=== PATIENT | female | born 1980 | race Caucasian/White ===

== ENCOUNTER 2022-09-21 14:45 | Outpatient (CLI) | payer OTHER | END 2022-09-21 14:46 | disposition home or self-care (01) | LOC: BICMAMMO 14:45 | PROVIDERS: ATTEND Nurse Practitioner Family | DX: R92.8 Other abnormal and inconclusive findings on diagnostic imaging of breast (principal) | CPT/HCPCS: 77066; G0279 ==

== ENCOUNTER 2022-11-20 07:54 | Day surgery (SDC) | payer BC ==
[2022-11-16 16:31] VITALS: BMI 32.9
[2022-11-20] MEDS ORDERED: Ketorolac Tromethamine 30 MG/ML VIAL ONE ×2 (09:37→11:21)
[2022-11-20] MEDS ORDERED: Acetaminophen 500 MG TAB ONE (09:37)
[2022-11-20] MEDS ORDERED: Lidocaine 1% (PF) 30 ML VIAL ONE (10:58)
[2022-11-20] MEDS ORDERED: Isosulfan Blue 50 MG/5 ML VIAL ONE (10:58)
[2022-11-20] MEDS ORDERED: Bupivacaine/Epinephrine 0.25% 30 ML VIAL ONE ×2 (10:58→12:24)
[2022-11-20] MEDS ORDERED: Fentanyl 250 MCG/5 ML VIAL ONE (11:02)
[2022-11-20] MEDS ORDERED: CEFAZOLIN 2 GM VIAL ONE (11:10)
[2022-11-20] MEDS ORDERED: Sodium Chloride 0.9% 100 ML ONE (11:10)
[2022-11-20] MEDS ORDERED: Lidocaine 1% PF 5 ML VIAL ONE (11:21)
[2022-11-20] MEDS ORDERED: PROPOFOL 200 MG/20 ML VIAL ONE (11:21)
[2022-11-20] MEDS ORDERED: Ondansetron PF 4 MG/2 ML Vial ONE (11:21)
[2022-11-20] MEDS ORDERED: Dexamethasone 20 MG/5 ML VIAL ONE (11:21)
[2022-11-20] MEDS ORDERED: Fentanyl 100 MCG/2 ML VIAL ONE (13:53)
== END 2022-11-20 15:55 | disposition home or self-care (01) ==
LOC: NM 07:54 → SDC 15:55
PROVIDERS: ATTEND Specialist
PROC: 07B50ZX Excision of Right Axillary Lymphatic, Open Approach, Diagnostic (ICD-10-PCS; principal; 2022-11-20)
PROC: 0HBT0ZZ Excision of Right Breast, Open Approach (ICD-10-PCS; principal; 2022-11-20)
DX: C50.411 Malignant neoplasm of upper-outer quadrant of right female breast (principal); C77.3 Secondary and unspecified malignant neoplasm of axilla and upper limb lymph nodes; Z17.0 Estrogen receptor positive status [ER+]
CPT/HCPCS: 76098; 78195; 88307; A9541; C1713; C1776; J1100; J1885; J2001; J2405; J2704; J3010; J3490; Q9968

== ENCOUNTER 2022-12-06 10:59 | Day surgery (SDC) | payer BC ==
[2022-12-05 15:13] VITALS: BMI 32.1
[2022-12-06] MEDS ORDERED: Acetaminophen 500 MG TAB ONE (11:33)
[2022-12-06] MEDS ORDERED: Ketorolac Tromethamine 30 MG/ML VIAL ONE (11:33)
[2022-12-06] MEDS ORDERED: Bupivacaine/Epinephrine 0.25% 30 ML VIAL ONE (12:58)
[2022-12-06] MEDS ORDERED: Sodium Chloride 0.9% 100 ML ONE (13:07)
[2022-12-06] MEDS ORDERED: CEFAZOLIN 2 GM VIAL ONE (13:07)
[2022-12-06] MEDS ORDERED: fentaNYL PF 100 MCG/2 ML SYRINGE ONE (13:13)
[2022-12-06] MEDS ORDERED: PROPOFOL 200 MG/20 ML VIAL ONE (13:29)
[2022-12-06] MEDS ORDERED: Lidocaine 1% PF 5 ML VIAL ONE (13:29)
[2022-12-06] MEDS ORDERED: Dexamethasone 20 MG/5 ML VIAL ONE (13:29)
[2022-12-06] MEDS ORDERED: Ondansetron PF 4 MG/2 ML Vial ONE (13:29)
[2022-12-06] MEDS ORDERED: Fentanyl 100 MCG/2 ML VIAL ONE ×2 (15:39→15:40)
== END 2022-12-06 16:33 | disposition home or self-care (01) ==
LOC: SDC 10:59
PROVIDERS: ATTEND Specialist
PROC: 0HBT0ZZ Excision of Right Breast, Open Approach (ICD-10-PCS; principal; 2022-12-06)
DX: C50.411 Malignant neoplasm of upper-outer quadrant of right female breast (principal); C77.3 Secondary and unspecified malignant neoplasm of axilla and upper limb lymph nodes
CPT/HCPCS: 88307; 88342; C1776; C1889; J1100; J1885; J2405; J2704; J3010; J3490

== ENCOUNTER 2022-12-21 11:37 | Outpatient (CLI) | payer BC ==
[2022-12-21 12:45] LABS: #Basophils 0.1 10x3/uL (0.0-0.2); #Eosinphils 0.2 10x3/uL (0.0-0.5); #Monocytes 0.8 10x3/uL (0.0-1.1); #Neutrophils 4.7 10x3/uL (1.5-8.4); %Basophils 1.3 % (0.0-2.0); %Eosinophils 2.6 % (0.0-6.0); %Lymphocytes 31.6 % (18.0-47.0); %Neutrophils 55.3 % (40.0-75.0); Hemoglobin 9.2 g/dL (12.0-15.5); Mean Corpuscular HGB CONC 29.4 g/dL (32.0-36.0); Mean Corpuscular Volume 71.3 fl (81.6-98.3); Mean Platelet Volume 9.4 fl (7.4-10.4); Platelet Count 437 10x3/uL (150-450); RBC Distribution Width 17.5 % (11.5-14.5); Red Blood Cell (RBC) Count 4.39 10x6/uL (3.90-5.03); White Blood Cell (WBC) Count 8.5 10x3/uL (3.5-10.5)
[2022-12-21 13:05] LABS: Anion Gap 12 mmol/L (10-20); BUN (Urea Nitrogen) 11 mg/dL (7.0-18.7); Calc. Creatinine Clearance 0 mL/min (70-130); Calcium 9.5 mg/dL (7.8-10.44); Carbon Dioxide 23 mmol/L (22-29); Chloride 105 mmol/L (98-107); Estimated GFR 114; Glucose 112 mg/dL (70-105); Potassium 4.1 mmol/L (3.5-5.1); Sodium 136 mmol/L (136-145)
[2022-12-21 13:08] LABS: Hypochromia SLIGHT = 6-15 cells (100X) (0-5/hpf); Microcytosis SLIGHT = 6-15 cells (100X) (0-5/hpf); Ovalocytes SLIGHT = 2-5 cells (100X) (0-1/hpf); Platelet Morphology Comment Appears Adequate
== END 2022-12-21 11:38 | disposition home or self-care (01) ==
LOC: LABBT 11:37
PROVIDERS: ATTEND Specialist
DX: Z01.812 Encounter for preprocedural laboratory examination (principal); C50.911 Malignant neoplasm of unspecified site of right female breast
CPT/HCPCS: 80048; 85025

== ENCOUNTER 2022-12-25 07:02 | Inpatient (IN) | payer BC ==
[2022-12-21 11:10] VITALS: BMI 31.6
[2022-12-25] MEDS ORDERED: Acetaminophen 500 MG TAB ONE (07:59)
[2022-12-25] MEDS ORDERED: Ketorolac Tromethamine 30 MG/ML VIAL ONE ×3 (07:59→14:50)
[2022-12-25] MEDS ORDERED: Midazolam HCl 2 mg/2 ml Vial ONE (08:48)
[2022-12-25] MEDS ORDERED: Fentanyl 100 MCG/2 ML VIAL ONE ×4 (08:48→16:54)
[2022-12-25] MEDS ORDERED: Sodium Chloride 0.9% 30 ML ONE (08:51)
[2022-12-25 09:08] LABS: SARS-CoV-2 NAA Rapid Test Not Detected (NotDetected)
[2022-12-25] MEDS ORDERED: Dexmedetomidine 200 MCG/2 ML VIAL ONE (09:45)
[2022-12-25] MEDS ORDERED: SUGAMMADEX SODIUM 200 MG/2 ML VIAL ONE (09:45)
[2022-12-25] MEDS ORDERED: fentaNYL PF 100 MCG/2 ML SYRINGE ONE (09:45)
[2022-12-25] MEDS ORDERED: Sodium Chloride 0.9% 100 ML ONE (10:00)
[2022-12-25] MEDS ORDERED: CEFAZOLIN 2 GM VIAL ONE (10:00)
[2022-12-25] MEDS ORDERED: Ondansetron PF 4 MG/2 ML Vial ONE (10:20)
[2022-12-25] MEDS ORDERED: Rocuronium Bromide 10 MG/ML (10ML VIAL) ONE (10:20)
[2022-12-25] MEDS ORDERED: PHENYLEPHRINE-NS 100 MCG/ML 10 ML SYRINGE ONE (10:20)
[2022-12-25] MEDS ORDERED: Ropivacaine 0.5% HCl/PF (150 MG/30 ML VIAL) ONE (10:20)
[2022-12-25] MEDS ORDERED: Dexamethasone 20 MG/5 ML VIAL ONE (10:20)
[2022-12-25] MEDS ORDERED: Lidocaine 1% PF 5 ML VIAL ONE (10:20)
[2022-12-25] MEDS ORDERED: PROPOFOL 200 MG/20 ML VIAL ONE (10:20)
[2022-12-25] MEDS ORDERED: Ondansetron HCl/PF 4 MG/2 ML Vial IVP PRN (13:53)
[2022-12-25] MEDS ORDERED: Promethazine HCl 25 MG/ML VIAL IM PRN ×2 (13:53→16:08)
[2022-12-25] MEDS ORDERED: HYDROmorphone 2 MG/ML VIAL SLOW IVP PRN (13:53)
[2022-12-25] MEDS ORDERED: Promethazine HCl 25 MG/ML VIAL ONE (15:24)
[2022-12-25] MEDS ORDERED: Ipratropium/Albuterol 3 ML NEB NEB PRN (16:08)
[2022-12-25] MEDS ORDERED: Ondansetron PF 4 MG/2 ML Vial IVP PRN (16:08)
[2022-12-25] MEDS ORDERED: HYDROcodone/Acetaminophen 7.5/325 mg Tablet PO PRN ×2 (16:08)
[2022-12-25] MEDS ORDERED: Morphine 2 MG/ML VIAL SLOW IVP PRN (16:08)
[2022-12-25] MEDS ORDERED: Dextrose 50% Abboject 50 ML SYRINGE SLOW IVP PRN (16:08)
[2022-12-25] MEDS ORDERED: Dextrose 5% in Water 1,000 ML IV PRN (16:08)
[2022-12-25] MEDS ORDERED: hydrALAZINE 20 MG/ML VIAL SLOW IVP PRN (16:08)
[2022-12-25 16:12] LABS: #Lymphocytes 1.6 thou/uL (1.20-3.40); #Monocytes 0.1 thou/uL (0.11-0.59); #Neutrophils 11.6 thou/uL (1.40-6.50); %Basophils 0.3 % (0.0-1.0); %Eosinophils 0.2 % (0.0-10.0); %Lymphocytes 11.9 % (21.0-51.0); %Monocytes 0.9 % (0.0-10.0); %Neutrophils 86.7 % (42.0-75.0); Hemoglobin 8.6 g/dL (12.0-16.0); Mean Corpuscular HGB CONC 31.2 g/dL (32.0-36.0); Mean Corpuscular Hemoglobin 21.9 pg (27.0-31.0); Mean Corpuscular Volume 70.2 fl (78.0-98.0); Mean Platelet Volume 8.8 fL (7.4-10.4); Platelet Count 350 10x3/uL (130-400); RBC Distribution Width 16.3 % (11.5-14.5); Red Blood Cell (RBC) Count 3.91 mill/uL (4.20-5.40); White Blood Cell (WBC) Count 13.4 10x3/uL (4.8-10.8)
[2022-12-25] MEDS: Ferrous Sulfate 325 MG TAB PO SCH (18:10)
[2022-12-25] MEDS: D5 1/2 NS w/20 mEq KCL 1,000 ML IV SCH (18:10)
[2022-12-25] MEDS: Ketorolac Tromethamine 30 MG/ML VIAL IVP SCH ×2 (18:11→23:59)
[2022-12-25] MEDS: Morphine 4 MG/ML VIAL SLOW IVP PRN (19:31)
[2022-12-25] MEDS: Famotidine 20 MG TAB PO SCH (22:09)
[2022-12-26] MEDS: Morphine 4 MG/ML VIAL SLOW IVP PRN ×5 (02:34→09:46)
[2022-12-26] MEDS: Ketorolac Tromethamine 30 MG/ML VIAL IVP SCH ×4 (05:22→23:10)
[2022-12-26 05:54] LABS: #Lymphocytes 2.5 thou/uL (1.20-3.40); #Monocytes 1.5 thou/uL (0.11-0.59); #Neutrophils 8.9 thou/uL (1.40-6.50); %Basophils 0.4 % (0.0-1.0); %Eosinophils 0.1 % (0.0-10.0); %Lymphocytes 19.5 % (21.0-51.0); %Monocytes 11.7 % (0.0-10.0); %Neutrophils 68.3 % (42.0-75.0); Hemoglobin 7.3 g/dL (12.0-16.0); Mean Corpuscular HGB CONC 32.1 g/dL (32.0-36.0); Mean Corpuscular Hemoglobin 22.5 pg (27.0-31.0); Mean Corpuscular Volume 70.1 fl (78.0-98.0); Mean Platelet Volume 8.6 fL (7.4-10.4); Platelet Count 322 10x3/uL (130-400); RBC Distribution Width 16.6 % (11.5-14.5); Red Blood Cell (RBC) Count 3.26 mill/uL (4.20-5.40)
[2022-12-26 06:10] LABS: Anion Gap 12 mmol/L (10-20); BUN (Urea Nitrogen) 6 mg/dL (7.0-18.7); Calc. Creatinine Clearance 162 mL/min (70-130); Carbon Dioxide 20 mmol/L (22-29); Chloride 107 mmol/L (98-107); Estimated GFR 116; Glucose 128 mg/dL (70-105); Sodium 135 mmol/L (136-145)
[2022-12-26] MEDS: D5 1/2 NS w/20 mEq KCL 1,000 ML IV SCH (09:45)
[2022-12-26] MEDS: Famotidine 20 MG TAB PO SCH ×2 (09:46→21:48)
[2022-12-26] MEDS: Ferrous Sulfate 325 MG TAB PO SCH ×2 (09:46→17:57)
[2022-12-26] MEDS ORDERED: HYDROcodone/Acetaminophen 7.5/325 mg Tablet PO PRN (13:43)
[2022-12-26] MEDS ORDERED: D5 1/2 NS w/20 mEq KCL 1,000 ML IV SCH (13:43)
[2022-12-26] MEDS: HYDROcodone/Acetaminophen 7.5/325 mg Tablet PO PRN ×3 (14:02→21:48)
[2022-12-27] MEDS: HYDROcodone/Acetaminophen 7.5/325 mg Tablet PO PRN ×3 (01:54→11:13)
[2022-12-27] MEDS: Ketorolac Tromethamine 30 MG/ML VIAL IVP SCH (05:30)
[2022-12-27 08:06] VITALS: BP 154/92; TEMP 98
[2022-12-27] MEDS: Famotidine 20 MG TAB PO SCH (08:24)
[2022-12-27] MEDS: Ferrous Sulfate 325 MG TAB PO SCH (08:24)
[2022-12-28] MEDS ORDERED: FLU VACC QS2022-23(6MOS UP)/PF 60 MCG/0.5 ML SYRINGE IM ONE (09:00)
== END 2022-12-27 12:30 | disposition home or self-care (01) | DRG 582 ==
LOC: SDC 07:02 → OBSVTOIN 17:38 → MSONC 17:38
PROVIDERS: ADMIT Specialist; ATTEND Specialist
PROC: 0HBV0ZZ Excision of Bilateral Breast, Open Approach (ICD-10-PCS; principal; 2022-12-25)
PROC: 0KXF0Z5 Transfer Right Trunk Muscle, Latissimus Dorsi Myocutaneous Flap, Open Approach (ICD-10-PCS; 2022-12-25)
PROC: 0KXG0Z5 Transfer Left Trunk Muscle, Latissimus Dorsi Myocutaneous Flap, Open Approach (ICD-10-PCS; 2022-12-25)
DX: C50.911 Malignant neoplasm of unspecified site of right female breast (principal); M96.843 Postprocedural seroma of a musculoskeletal structure following other procedure; Z17.0 Estrogen receptor positive status [ER+]
CPT/HCPCS: 36415; 80048; 85025; 88309; 96374; 96375; 96376; G0378; J1100; J1885; J2250; J2270; J2272; J2405; J2550; J2704; J2795; J3010; J3480; J3490; U0002

== ENCOUNTER → 2023-01-23 | Outpatient (CLI) | payer BC | LOC: PET 08:45 | PROVIDERS: ATTEND Internal Medicine Hematology & Oncology | DX: C50.811 Malignant neoplasm of overlapping sites of right female breast (principal); Z90.13 Acquired absence of bilateral breasts and nipples | CPT/HCPCS: 78815; A9552 ==

== ENCOUNTER 2023-01-28 10:01 | Day surgery (SDC) | payer BC ==
[2023-01-25 09:48] VITALS: BMI 29.8
[2023-01-28] MEDS ORDERED: Ketorolac Tromethamine 30 MG/ML VIAL ONE (10:43)
[2023-01-28] MEDS ORDERED: Acetaminophen 500 MG TAB ONE (10:43)
[2023-01-28] MEDS ORDERED: CEFAZOLIN 2 GM VIAL ONE (10:44)
[2023-01-28] MEDS ORDERED: Sodium Chloride 0.9% 100 ML ONE (10:44)
[2023-01-28] MEDS ORDERED: Lidocaine 1% (PF) 30 ML VIAL ONE (12:21)
[2023-01-28] MEDS ORDERED: Bupivacaine/Epinephrine 0.25% 30 ML VIAL ONE (12:21)
[2023-01-28] MEDS ORDERED: Propofol 500 MG/50 ML VIAL ONE (12:28)
[2023-01-28] MEDS ORDERED: fentaNYL PF 100 MCG/2 ML SYRINGE ONE (12:28)
[2023-01-28] MEDS ORDERED: Midazolam HCl 2 mg/2 ml Vial ONE (12:28)
== END 2023-01-28 15:06 | disposition home or self-care (01) ==
LOC: SDC 10:01
PROVIDERS: ATTEND Specialist
PROC: 0JH60WZ Insertion of Totally Implantable Vascular Access Device into Chest Subcutaneous Tissue and Fascia, Open Approach (ICD-10-PCS; principal; 2023-01-28)
PROC: 02HV33Z Insertion of Infusion Device into Superior Vena Cava, Percutaneous Approach (ICD-10-PCS; principal; 2023-01-28)
DX: C50.911 Malignant neoplasm of unspecified site of right female breast (principal); Z17.0 Estrogen receptor positive status [ER+]; Z88.2 Allergy status to sulfonamides; Z91.048 Other nonmedicinal substance allergy status; Z90.13 Acquired absence of bilateral breasts and nipples
CPT/HCPCS: 71045; C1788; J1642; J1885; J2001; J2250; J2704; J3490

== ENCOUNTER 2023-05-31 07:36 | Outpatient (CLI) | payer BC | END 2023-05-31 07:37 | disposition home or self-care (01) | LOC: BICULT 07:36 | PROVIDERS: ATTEND Otolaryngology Plastic Surgery within the Head & Neck | DX: E04.1 Nontoxic single thyroid nodule (principal) | CPT/HCPCS: 76536 ==